=== PATIENT | male | born 1960 | race African-American/Black ===

== ENCOUNTER 2016-04-08 07:16 | Emergency (ER) | payer SELFPAY ==
[~2016-04-08] VITALS: Ht 177.8 cm; Wt 95.0 kg
[~2016-04-08 07:16] MED LIST: PHEN12.5 PR; Z.0.NO CURRENT MEDS
[2016-04-08 07:18] VITALS: BP 128/87; PULSE 65; RESP 15; TEMP 97.9; O2SAT 99
[2016-04-08] MEDS ORDERED: IBUP800T23 PO (07:58)
[2016-04-08] MEDS ORDERED: CYCL1TAB29 PO (07:58)
--- NOTE | 2016-04-08 07:59 | PD ---
HPI Chief Complaint: Back/ Neck Pain or Injury Time Seen by Provider: 07:53 Travel History International Travel<30 days: No Contact w/Intl Traveler<30days: No Traveled to known affect area: No History of Present Illness HPI Patient is a 55-year-old male who presents to the emergency department for evaluation of left lower back pain. Patient states pain started on Friday or Friday but he states he lifted a heavy wheelbarrow full of rocks on Friday of last week. Patient states the pain radiates down the back of his leg and around the front of his thigh. He denies any numbness or tingling but states it 's painful when he lifts his left leg. He denies any other injury or trauma. Patient states he's had pain similar to this in the past due to his work. He denies any bladder or bowel incontinence, no saddle paresthesia. PFSH Past Medical History Medical History: Denies Significant Hx Tetanus Vaccination: Unknown Social History Alcohol Use: Yes Tobacco Use: No Substance Use: No Allergies-Medications (Allergen,Severity, Reaction): Coded Allergies: No Known Allergies (Unverified , 03/13/11) Reported Meds & Prescriptions Reported Meds & Active Scripts Active Phenergan (Promethazine HCl) 12.5 Mg Sup 12.5 Mg NV Q6HPRN FOR NAUSEA Reported No Current Meds (Miscellaneous Medication) Misc Review of Systems Except as stated in HPI: all other systems reviewed are Neg Musculoskeletal: Positive: Myalgias, Cramping, Pain Physical Exam Narrative GENERAL: Well-nourished, well-developed patient. SKIN: Warm and dry. HEAD: Normocephalic. EYES: No scleral icterus. No injection or drainage. NECK: Supple, trachea midline. No JVD or lymphadenopathy. CARDIOVASCULAR: Regular rate and rhythm without murmurs, gallops, or rubs. RESPIRATORY: Breath sounds equal bilaterally. No accessory muscle use. GASTROINTESTINAL: Abdomen soft, non-tender, nondistended. MUSCULOSKELETAL: No cyanosis, or edema. Tenderness to palpation in left paraspinal musculature in the lumbar region. Left leg left elicits pain in the lower back. 5/5 muscle strength in bilateral lower extremities. BACK: Nontender without obvious deformity. No CVA tenderness. Data Data Last Documented VS Vital Signs Date Time Temp Pulse Resp B/P Pulse Ox O2 Delivery O2 Flow Rate FiO2 04/08/16 07:18 97.9 65 15 128/87 99 [facility] Medical Decision Making Medical Screen Exam Complete: Yes Emergency Medical Condition: Yes Interpretation(s) Vital Signs Date Time Temp Pulse Resp B/P Pulse Ox O2 Delivery O2 Flow Rate FiO2 04/08/16 07:18 97.9 65 15 128/87 99 Differential Diagnosis Strain versus sprain versus spasm versus discogenic pain Narrative Course Patient is a 55-year-old male who presented to her chart for evaluation of left lower back pain. Pain started after lifting a heavy wheelbarrow at work approximately 5 days ago. Patient is neurologically intact. Physical examination is consistent with muscle strain, muscle spasms. Patient does not take any medications consistently to relieve the pain. Patient was advised to alternate heat and ice to affected area, continue range of motion exercises and take medications as directed. He is further advised to follow-up with his primary doctor return to emergency department for any new or worsening symptoms. Significant other verbalized understanding of these instructions. Patient is stable for discharge. Diagnosis Primary Impression: Strain of lumbar paraspinal muscle Qualified Code: S39.012A - Strain of lumbar paraspinal muscle, initial encounter Additional Impression: Spasm of lumbar paraspinous muscle Referrals: Primary Care Physician Patient Instructions: General Instructions, Muscle Spasm (ED), Muscle Strain ( ED) Additional Instructions: Follow-up with your primary doctor Alternate heat and ice to the affected area, continue range of motion exercises , avoid bed rest, avoid exacerbating activities Practice safe lifting techniques Take medications as directed Return to emergency department for any new or worsening symptoms Med/Other Pt SpecificInfo: Prescription(s) given Scripts Cyclobenzaprine (Flexeril)10 Mg Tab10 Mg PO TID PRN (MUSCLE SPASM) 10 Days Ref 0 Prov:Sailaja Menendez 04/08/16 Ibuprofen 800 Mg [id number] Mg PO Q6HR PRN (PAIN) #40 TAB Ref 0 Prov:Sailaja Menendez 04/08/16 Disposition: 01 DISCHARGE HOME Condition: Stable ShonSailaja SCALES Apr 08, 2016 07:59
== END 2016-04-08 08:25 | disposition home or self-care (01) ==
LOC: NEPB 07:16
DX: S39.012A Strain of muscle, fascia and tendon of lower back, initial encounter (principal); X50.0XXA Overexertion from strenuous movement or load, initial encounter; Y93.89 Activity, other specified; Y92.89 Other specified places as the place of occurrence of the external cause; Y99.8 Other external cause status; W27.1XXA Contact with garden tool, initial encounter
CPT/HCPCS: 99283